=== PATIENT | male | born 2000 | race Hispanic/Latino ===

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

== ENCOUNTER 2019-05-18 | Emergency (ER) | payer OTHER ==
[~2019-05-18] MED LIST changes: +NEOMYCIN/POLYMY1 SOL AS
[2019-05-18 16:57] LABS: URINE BILIRUBIN - DIPSTICK NEGATIVE (NEGATIVE); URINE BLOOD DIPSTICK NEGATIVE (NEGATIVE); URINE CLARITY CLEAR; URINE COLOR YELLOW; URINE GLUCOSE - DIPSTICK NEGATIVE (NEGATIVE); URINE KETONE NEGATIVE (NEGATIVE); URINE LEUK ESTERASE NEGATIVE (Negative); URINE NITRITE - DIPSTICK NEGATIVE (Negative); URINE PROTEIN - DIPSTICK NEGATIVE (NEG-TRACE); URINE SPECIFIC GRAVITY <=1.005; URINE UROBILINOGEN - DIPSTICK 0.2 E.U./dL (0.2)
== END 2019-05-18 18:38 | disposition home or self-care (01) | DRG 392 ==
DX: R10.9 Unspecified abdominal pain (principal); V49.50XA Passenger injured in collision with unspecified motor vehicles in traffic accident, initial encounter